=== PATIENT | male | born 1950 | race Asian ===

== ENCOUNTER → 2016-08-15 | Outpatient (CLI) | payer BC ==
--- NOTE | 2016-08-19 11:45 | Diagnostic Imaging Report ---
Indication: Neck pain Technique: MRI examination of the cervical spine was performed in a 1.5 Teagan magnet. Sequences obtained include sagittal and axial T1 and T2 fast spin echo, and sagittal STIR. No IV gadolinium was given Comparison: none Findings: The spinal cord is normal in appearance. There is no Chiari malformation. Bone marrow signal and alignment are essentially normal. Some degenerative changes present throughout the cervical spine characterized by mild endplate and uncovertebral spur formation and narrowing of some of the intervertebral discs. C1-C2 3 unremarkable. C3-4 shows mild disc disease and left foraminal stenosis due to uncovertebral spurring. C4-5 shows mild disc disease and mild bilateral foraminal stenosis. C5-6 shows moderate disc narrowing and desiccation and moderate bilateral foraminal stenosis slightly worse on the left compared to the right. C6-7 shows moderate disc disease and moderate to severe bilateral foraminal stenosis. C7-T1 is unremarkable. Impression: Spondylosis as described above.
== END | disposition home or self-care (01) ==
LOC: MRI 10:00
DX: M54.12 Radiculopathy, cervical region (principal)
CPT/HCPCS: 72141